=== PATIENT | female | born 1960 | race Caucasian/White ===

== ENCOUNTER 2019-05-05 18:37 | Inpatient (IN) ==
[2019-05-05] MEDS ORDERED: *HR* Dextrose 50 % in Water (Syg) 50 ML SYRINGE IVP PRN (18:43)
[2019-05-05] MEDS ORDERED: Ondansetron 4 MG/2 ML VIAL IVP ONE (18:48)
[2019-05-05] MEDS: 0.9 % Sodium Chloride 1,000 ML IVC SCH ×2 (19:17→20:41)
[2019-05-05 19:31] LABS: Basophils # 0.1 K/mcL (0.0-0.2); Basophils % 0.7 %; Eosinophils % 0.2 %; Hematocrit 40.5 % (35.3-44.9); Hemoglobin 12.5 g/dL (11.5-15.4); Immature Granulocytes % 3.2 % (0-4); Lymphocytes # 1.2 K/mcL (0.6-4.6); Lymphocytes % 6.2 %; Mean Corpuscular HGB Conc 30.9 g/dL (31.6-35.5); Mean Corpuscular Hemoglobin 25.6 pg (28.0-33.3); Mean Platelet Volume 9.3 fL (9.4-12.4); Monocytes # 1.2 K/mcL (0.0-1.3); Monocytes % 5.9 %; Neutrophils # 16.3 K/mcL (1.6-8.9); Platelet Count 531 K/mcL (140-400); Red Blood Count 4.88 M/mcL (3.82-4.97); Segmented Neutrophils % 83.8 %; White Blood Count 19.5 K/mcL (4.3-11.1)
[2019-05-05 19:39] LABS: VBG HCO3 8 mEq/L (21-27); VBG PCO2 31 mmHg (41-51); VBG PH 7.01 pH Units (7.32-7.42); VBG PO2 75 mmHg (25-50)
[2019-05-05] MEDS ORDERED: 0.9 % Sodium Chloride 1,000 ML IVC ONE ×2 (19:42→20:09)
[2019-05-05 19:48] LABS: Troponin I < 0.03 ng/mL (< 0.04)
[2019-05-05 19:51] LABS: Bilirubin,Urine Moderate (Negative); Blood,Urine Small (Negative); Clarity,Urine Cloudy (Clear); Color,Urine Yellow (Yellow); Glucose,Urine (UA) >=1000 mg/dL (Normal); Ketones,Urine >=160 mg/dL (Negative); Leukocyte Esterase,Urine Small (Negative); Nitrite,Urine Negative (Negative); PH,Urine 5.5 pH Units (5.0-8.0); Protein,Urine 100 mg/dL (Neg-Trace); Specific Gravity,Urine 1.029 (1.010-1.025); Urobilinogen,Urine Normal (Normal)
[2019-05-05 19:52] LABS: Bacteria,Urine Few per hpf (None-Few); Hyaline Casts,Urine None Seen per lpf (None-Few); Squamous Epithelial Cell,Urine Many per lpf (None-Few); WBC,Urine 50-100 per hpf (0-3)
[2019-05-05 20:00] LABS: BUN/Creatinine Ratio 19 (6-26); Blood Urea Nitrogen 25 mg/dL (6-20); Calcium 9.6 mg/dL (8.6-10.3); Carbon Dioxide 8 mEq/L (23-29); Chloride 98 mEq/L (98-107); Glucose 577 mg/dL (70-105); Osmolality,Calculated 301 (280-300); Potassium 5.4 mEq/L (3.5-5.1); Sodium 130 mEq/L (136-145); eGFR For African Americans 50 (> 60); eGFR For Non-African Americans 41 (> 60)
[2019-05-05 20:07] LABS: Yeast,Urine Few per hpf (None Seen)
[2019-05-05] MEDS ORDERED: cefTRIAXone 1,000 MG in 0.9 % Sodium Chloride Mini Bag 100 ML IVPB ONE (20:10)
[2019-05-05] MEDS: Insulin Human Regular 100 UNIT in 0.9 % Sodium Chloride 100 ML IVC SCH (20:15)
[2019-05-05] MEDS ORDERED: Insulin Regular, Human 100 UNIT/ML IV PRN ×2 (20:26)
[2019-05-05] MEDS ORDERED: D5% in 0.45% NACL 1,000 ML IVC PRN (20:26)
[2019-05-05] MEDS ORDERED: *HR* Promethazine 25 MG/ML VIAL IVP PRN (20:56)
[2019-05-05] MEDS ORDERED: Famotidine 20 MG/2 ML VIAL IVP ONE (20:57)
[2019-05-05] MEDS ORDERED: Naloxone 0.4 MG/ML INJ IVP PRN (22:18)
[2019-05-05 23:17] LABS: Estimated Average Glucose 235 mg/dl
[2019-05-05] MEDS: Artificial Tears SOLN 15 ML BOTTLE RIGHT EYE SCH (23:20)
[2019-05-05] MEDS: *HR* Heparin 5,000 UNIT/ML VIAL SQ SCH (23:21)
[2019-05-05 23:26] LABS: VBG HCO3 10 mEq/L (21-27); VBG PCO2 32 mmHg (41-51); VBG PH 7.08 pH Units (7.32-7.42); VBG PO2 54 mmHg (25-50)
[2019-05-05 23:37] LABS: Chol/HDL Ratio 6.1 (0-4.9)
[2019-05-05 23:39] LABS: Phosphorous 3.1 mg/dL (2.7-4.5); Potassium 4.8 mEq/L (3.5-5.1)
[2019-05-06] MEDS: D5% in 0.45% NACL w KCl 20 MEQ/1,000 ML MLS IVC PRN ×3 (00:27→08:50)
[2019-05-06] MEDS: 0.45 % Sodium Chloride w/KCl 20 MEQ/1,000 ML MLS IVC SCH ×5 (00:30→10:27)
[2019-05-06 02:41] LABS: VBG HCO3 13 mEq/L (21-27); VBG PCO2 42 mmHg (41-51); VBG PO2 86 mmHg (25-50)
[2019-05-06] MEDS ORDERED: Acetaminophen 325 MG TABLET PO PRN ×2 (03:02→14:12)
[2019-05-06 03:04] LABS: BUN/Creatinine Ratio 23 (6-26); Blood Urea Nitrogen 23 mg/dL (6-20); Calcium 8.7 mg/dL (8.6-10.3); Carbon Dioxide 12 mEq/L (23-29); Chloride 110 mEq/L (98-107); Glucose 269 mg/dL (70-105); Osmolality,Calculated 293 (280-300); Potassium 4.3 mEq/L (3.5-5.1); Sodium 135 mEq/L (136-145); eGFR For African Americans > 60 (> 60); eGFR For Non-African Americans 56 (> 60)
[2019-05-06] MEDS: Insulin Human Regular 100 UNIT in 0.9 % Sodium Chloride 100 ML IVC SCH ×2 (03:44→11:45)
[2019-05-06] MEDS ORDERED: Pantoprazole 40 MG VIAL IVP SCH (06:00)
[2019-05-06 06:08] LABS: Basophils # 0.1 K/mcL (0.0-0.2); Basophils % 0.5 %; Eosinophils # 0.1 K/mcL (0.0-0.6); Eosinophils % 0.4 %; Hematocrit 32.3 % (35.3-44.9); Hemoglobin 10.7 g/dL (11.5-15.4); Immature Granulocytes % 1.9 % (0-4); Lymphocytes # 1.1 K/mcL (0.6-4.6); Lymphocytes % 6.7 %; Mean Corpuscular HGB Conc 33.1 g/dL (31.6-35.5); Mean Corpuscular Hemoglobin 25.4 pg (28.0-33.3); Mean Platelet Volume 8.6 fL (9.4-12.4); Monocytes # 1.4 K/mcL (0.0-1.3); Monocytes % 8.9 %; Neutrophils # 13.2 K/mcL (1.6-8.9); Platelet Count 403 K/mcL (140-400); Red Blood Count 4.21 M/mcL (3.82-4.97); Segmented Neutrophils % 81.6 %; White Blood Count 16.2 K/mcL (4.3-11.1)
[2019-05-06 06:09] LABS: Mean Corpuscular Volume 76.7 fL (83.0-100.0)
[2019-05-06 06:09] LABS: VBG HCO3 14 mEq/L (21-27); VBG PCO2 32 mmHg (41-51); VBG PH 7.26 pH Units (7.32-7.42); VBG PO2 147 mmHg (25-50)
[2019-05-06 06:26] LABS: BUN/Creatinine Ratio 22 (6-26); Blood Urea Nitrogen 21 mg/dL (6-20); Calcium 8.8 mg/dL (8.6-10.3); Carbon Dioxide 15 mEq/L (23-29); Chloride 112 mEq/L (98-107); Glucose 112 mg/dL (70-105); Magnesium 1.9 mg/dL (1.6-2.6); Osmolality,Calculated 288 (280-300); Phosphorous 1.2 mg/dL (2.7-4.5); Sodium 137 mEq/L (136-145); eGFR For African Americans > 60 (> 60); eGFR For Non-African Americans 60 (> 60)
[2019-05-06] MEDS ORDERED: Potassium Phosphate 44 MEQ in 0.9 % Sodium Chloride 250 ML IVPB ONE (06:32)
[2019-05-06] MEDS: *HR* Heparin 5,000 UNIT/ML VIAL SQ SCH ×2 (08:50→16:06)
[2019-05-06] MEDS ORDERED: Gabapentin 300 MG CAPSULE PO SCH (09:00)
[2019-05-06] MEDS ORDERED: Phenylephrine Nasal 0.25% 15 ML BOTTLE NS SCH (09:00)
[2019-05-06] MEDS ORDERED: Lisinopril 20 MG TABLET PO SCH (09:00)
[2019-05-06] MEDS: Artificial Tears SOLN 15 ML BOTTLE RIGHT EYE SCH (10:27)
[2019-05-06 10:46] LABS: BUN/Creatinine Ratio 20 (6-26); Blood Urea Nitrogen 19 mg/dL (6-20); Calcium 8.5 mg/dL (8.6-10.3); Carbon Dioxide 16 mEq/L (23-29); Chloride 111 mEq/L (98-107); Glucose 187 mg/dL (70-105); Magnesium 1.8 mg/dL (1.6-2.6); Osmolality,Calculated 287 (280-300); Phosphorous 2.2 mg/dL (2.7-4.5); Potassium 4.2 mEq/L (3.5-5.1); Sodium 135 mEq/L (136-145); eGFR For African Americans > 60 (> 60); eGFR For Non-African Americans > 60 (> 60)
[2019-05-06] MEDS ORDERED: Insulin DETEMIR 100 UNIT/ML X5UNITS SQ SCH (11:28)
[2019-05-06] MEDS ORDERED: Dextrose Gel 15 GM/37.5 ML TUBE PO PRN ×6 (11:29→14:12)
[2019-05-06] MEDS ORDERED: *HR* Dextrose 50 % in Water (Syg) 50 ML SYRINGE IVP PRN ×3 (11:29→14:12)
[2019-05-06] MEDS ORDERED: D5% in Water 1,000 ML IVC PRN ×3 (11:29→14:12)
[2019-05-06] MEDS ORDERED: Insulin LISPRO 300 UNITS/3 ML VIAL SQ SCH ×2 (11:30→16:30)
[2019-05-06] MEDS: Gabapentin 300 MG CAPSULE PO SCH ×2 (16:06→20:12)
[2019-05-06] MEDS: Insulin LISPRO 300 UNITS/3 ML VIAL SQ SCH ×2 (17:26→20:12)
[2019-05-06] MEDS: Phenylephrine Nasal 0.25% 15 ML BOTTLE NS SCH (20:16)
[2019-05-06] MEDS ORDERED: Insulin Human Regular 10 UNIT in 0.9 % Sodium Chloride 10 ML IV ONE (22:10)
[2019-05-07] MEDS: *HR* Heparin 5,000 UNIT/ML VIAL SQ SCH ×4 (01:48→23:52)
[2019-05-07] MEDS ORDERED: Insulin Human Regular 10 UNIT in 0.9 % Sodium Chloride 10 ML IV ONE (04:43)
[2019-05-07] MEDS: Insulin LISPRO 300 UNITS/3 ML VIAL SQ SCH ×5 (07:52→21:20)
[2019-05-07] MEDS: Phenylephrine Nasal 0.25% 15 ML BOTTLE NS SCH ×2 (07:56→21:20)
[2019-05-07] MEDS: Gabapentin 300 MG CAPSULE PO SCH ×3 (08:00→21:19)
[2019-05-07] MEDS: Lisinopril 20 MG TABLET PO SCH (08:01)
[2019-05-07 08:13] LABS: Hematocrit 32.3 % (35.3-44.9); Hemoglobin 10.9 g/dL (11.5-15.4); Mean Corpuscular HGB Conc 33.7 g/dL (31.6-35.5); Mean Corpuscular Hemoglobin 25.8 pg (28.0-33.3); Mean Corpuscular Volume 76.4 fL (83.0-100.0); Mean Platelet Volume 8.7 fL (9.4-12.4); Platelet Count 352 K/mcL (140-400); Red Blood Count 4.23 M/mcL (3.82-4.97); Red Cell Distribution Width 15.2 % (11.5-14.5); White Blood Count 10.1 K/mcL (4.3-11.1)
[2019-05-07 08:34] LABS: BUN/Creatinine Ratio 16 (6-26); Blood Urea Nitrogen 15 mg/dL (6-20); Calcium 8.9 mg/dL (8.6-10.3); Carbon Dioxide 17 mEq/L (23-29); Chloride 105 mEq/L (98-107); Glucose 300 mg/dL (70-105); Osmolality,Calculated 284 (280-300); Sodium 131 mEq/L (136-145); eGFR For African Americans > 60 (> 60); eGFR For Non-African Americans > 60 (> 60)
[2019-05-07] MEDS ORDERED: Insulin DETEMIR 100 UNIT/ML X5UNITS SQ SCH ×2 (09:00→22:00)
[2019-05-07] MEDS ORDERED: Insulin LISPRO 300 UNITS/3 ML VIAL SQ ONE (12:31)
[2019-05-07] MEDS ORDERED: Insulin LISPRO 300 UNITS/3 ML VIAL SQ SCH (15:00)
[2019-05-08 05:59] LABS: BUN/Creatinine Ratio 17 (6-26); Blood Urea Nitrogen 16 mg/dL (6-20); Calcium 8.9 mg/dL (8.6-10.3); Carbon Dioxide 20 mEq/L (23-29); Chloride 103 mEq/L (98-107); Glucose 210 mg/dL (70-105); Osmolality,Calculated 285 (280-300); Potassium 3.5 mEq/L (3.5-5.1); Sodium 134 mEq/L (136-145); eGFR For African Americans > 60 (> 60); eGFR For Non-African Americans > 60 (> 60)
[2019-05-08 06:34] VITALS: BP 158/81
[2019-05-08] MEDS: Insulin LISPRO 300 UNITS/3 ML VIAL SQ SCH (07:46)
[2019-05-08] MEDS: *HR* Heparin 5,000 UNIT/ML VIAL SQ SCH (07:47)
[2019-05-08] MEDS ORDERED: Insulin LISPRO 300 UNITS/3 ML VIAL SQ SCH (08:00)
[2019-05-08] MEDS: Lisinopril 20 MG TABLET PO SCH (09:57)
[2019-05-08] MEDS: Gabapentin 300 MG CAPSULE PO SCH (09:58)
[2019-05-08] MEDS: Phenylephrine Nasal 0.25% 15 ML BOTTLE NS SCH (10:00)
[2019-05-08] MEDS ORDERED: FLU Vac QV 19-20 (6Month+)/PF 0.5 ML SYRINGE IM ONE (10:17)
== END 2019-05-08 11:19 | disposition home or self-care (01) | DRG 689 ==
LOC: EMEROOARM 18:37 → SUATTDRO 20:46 → ICNU 20:46 → 3ANU 05-06 14:56
PROVIDERS: ADMIT Internal Medicine; ATTEND Internal Medicine

== ENCOUNTER 2021-09-09 22:16 | Observation (INO) ==
[2021-09-09 22:56] LABS: Basophils % 0.5 %; Eosinophils # 0.5 K/mcL (0.0-0.6); Eosinophils % 5.7 %; Hematocrit 35.7 % (35.3-44.9); Hemoglobin 11.2 g/dL (11.5-15.4); Immature Granulocytes % 0.2 % (0-4); Lymphocytes # 1.2 K/mcL (0.6-4.6); Lymphocytes % 14.7 %; Mean Corpuscular HGB Conc 31.4 g/dL (31.6-35.5); Mean Corpuscular Hemoglobin 23.8 pg (28.0-33.3); Mean Platelet Volume 9.3 fL (9.4-12.4); Monocytes # 0.5 K/mcL (0.0-1.3); Monocytes % 5.8 %; Platelet Count 290 K/mcL (140-400); Red Cell Distribution Width 15.6 % (11.5-14.5); Segmented Neutrophils % 73.1 %; White Blood Count 8.2 K/mcL (4.3-11.1)
[2021-09-09 23:14] LABS: BUN/Creatinine Ratio 17 (6-26); Blood Urea Nitrogen 11 mg/dL (8-23); Calcium 8.8 mg/dL (8.6-10.3); Carbon Dioxide 21 mEq/L (23-29); Chloride 105 mEq/L (98-107); Glucose 168 mg/dL (70-105); Osmolality,Calculated 289 (280-300); Potassium 3.7 mEq/L (3.5-5.1); Sodium 138 mEq/L (136-145); eGFR For African Americans > 60 (> 60); eGFR For Non-African Americans > 60 (> 60)
[2021-09-09 23:16] LABS: Troponin I < 0.03 ng/mL (< 0.04)
[2021-09-09] MEDS ORDERED: *HR* Labetalol 20 MG/4 ML SYRINGE IVP ONE (23:34)
[2021-09-09 23:44] LABS: Bilirubin,Urine Negative (Negative); Blood,Urine Negative (Negative); Clarity,Urine Clear (Clear); Color,Urine Yellow (Yellow); Glucose,Urine (UA) Normal (Normal); Hyaline Casts,Urine Few per lpf (None Seen); Ketones,Urine Negative (Negative); Leukocyte Esterase,Urine Trace (Negative); Mucus,Urine Few per lpf (None-Few); Nitrite,Urine Negative (Negative); Protein,Urine >=300 mg/dL (Neg-Trace); RBC,Urine 0-3 per hpf (0-3); Squamous Epithelial Cell,Urine Moderate per hpf (None-Few); Urobilinogen,Urine Normal (Normal)
[2021-09-10] MEDS ORDERED: Prochlorperazine 10 MG/2 ML VIAL IVP ONE (00:33)
[2021-09-10 01:39] LABS: Influenza A PCR Negative (Negative); Influenza B PCR Negative (Negative); Resp. Syncytial Virus PCR Negative (Negative); SARS-CoV-2 by PCR (In House) Negative (Negative)
[2021-09-10] MEDS ORDERED: Acetaminophen 325 MG TABLET PO PRN (02:55)
[2021-09-10] MEDS ORDERED: *HR* Promethazine 25 MG/ML VIAL IM PRN (02:55)
[2021-09-10] MEDS ORDERED: Ondansetron 4 MG/2 ML VIAL IVP PRN (02:55)
[2021-09-10] MEDS ORDERED: Melatonin 3 MG TABLET PO PRN (02:55)
[2021-09-10] MEDS ORDERED: Naloxone 0.4 MG/ML INJ IVP PRN (02:55)
[2021-09-10] MEDS ORDERED: *HR* Dextrose 50 % in Water (Syg) 50 ML SYRINGE IVP PRN (02:59)
[2021-09-10] MEDS ORDERED: D5% in Water 1,000 ML IVC PRN (02:59)
[2021-09-10] MEDS ORDERED: Dextrose 4 GM Chewable Tablets PO PRN ×2 (02:59)
[2021-09-10 04:00] LABS: Basophils # 0.1 K/mcL (0.0-0.2); Basophils % 0.6 %; Eosinophils # 0.4 K/mcL (0.0-0.6); Eosinophils % 4.5 %; Hematocrit 31.7 % (35.3-44.9); Hemoglobin 10.2 g/dL (11.5-15.4); Immature Granulocytes % 0.2 % (0-4); Lymphocytes # 1.4 K/mcL (0.6-4.6); Lymphocytes % 17.4 %; Mean Corpuscular HGB Conc 32.2 g/dL (31.6-35.5); Mean Corpuscular Hemoglobin 24.2 pg (28.0-33.3); Mean Corpuscular Volume 75.3 fL (83.0-100.0); Mean Platelet Volume 9.5 fL (9.4-12.4); Monocytes # 0.5 K/mcL (0.0-1.3); Monocytes % 6.3 %; Neutrophils # 5.8 K/mcL (1.6-8.9); Platelet Count 272 K/mcL (140-400); Red Blood Count 4.21 M/mcL (3.82-4.97); Red Cell Distribution Width 15.6 % (11.5-14.5); White Blood Count 8.2 K/mcL (4.3-11.1)
[2021-09-10 04:14] LABS: Chol/HDL Ratio 3.1 (0-4.9)
[2021-09-10 04:17] LABS: Alanine Aminotransferase 6 Units/L (7-52); Albumin 3.9 g/dL (3.5-5.7); Albumin/Globulin Ratio 1.6 (1.1-2.2); Alkaline Phosphatase 65 Units/L (34-104); Aspartate Amino Transferase 9 Units/L (13-39); BUN/Creatinine Ratio 17 (6-26); Bilirubin,Total 0.5 mg/dL (0.3-1.0); Blood Urea Nitrogen 10 mg/dL (8-23); Calcium 8.7 mg/dL (8.6-10.3); Carbon Dioxide 25 mEq/L (23-29); Chloride 106 mEq/L (98-107); Globulin 2.5 g/dL (2.4-3.5); Glucose 151 mg/dL (70-105); Magnesium 1.5 mg/dL (1.6-2.6); Osmolality,Calculated 292 (280-300); Potassium 3.4 mEq/L (3.5-5.1); Sodium 140 mEq/L (136-145); Total Protein 6.4 g/dL (6.4-8.9); eGFR For African Americans > 60 (> 60); eGFR For Non-African Americans > 60 (> 60)
[2021-09-10] MEDS: *HR* Enoxaparin 40 MG/0.4 ML SYRINGE SQ SCH (05:43)
[2021-09-10] MEDS: Aspirin Enteric Coated 81 MG Tablet PO SCH (08:38)
[2021-09-10] MEDS: amLODIPine 5 MG TABLET PO SCH (08:38)
[2021-09-10] MEDS: lisinopriL 20 MG TABLET PO SCH (08:38)
[2021-09-10] MEDS: Insulin LISPRO 300 UNITS/3 ML VIAL SUBQ SCH ×3 (08:43→18:22)
[2021-09-10] MEDS ORDERED: Acetaminophen/Aspirin/Caffeine TABLET PO PRN (13:40)
[2021-09-10] MEDS ORDERED: Insulin DETEMIR 100 UNIT/ML X5UNITS SUBQ SCH ×2 (21:00)
[2021-09-10] MEDS ORDERED: traZODone 50 MG TABLET PO SCH (21:00)
[2021-09-10] MEDS ORDERED: Insulin LISPRO 300 UNITS/3 ML VIAL SUBQ SCH (21:00)
[2021-09-11] MEDS: *HR* Enoxaparin 40 MG/0.4 ML SYRINGE SQ SCH (06:23)
[2021-09-11] MEDS: Aspirin Enteric Coated 81 MG Tablet PO SCH (08:51)
[2021-09-11] MEDS: lisinopriL 20 MG TABLET PO SCH (08:51)
[2021-09-11] MEDS: amLODIPine 5 MG TABLET PO SCH (08:51)
[2021-09-11] MEDS: Insulin LISPRO 300 UNITS/3 ML VIAL SUBQ SCH (08:52)
[2021-09-11 10:35] VITALS: BP 156/79; PULSE 78; TEMP 97.8; O2SAT 95
== END 2021-09-11 12:38 | disposition home or self-care (01) ==
LOC: 3ANU 22:16 → EMEROOARM 22:16 → 3ANU 09-10 02:15
PROVIDERS: ADMIT Internal Medicine; ATTEND Internal Medicine

== ENCOUNTER 2022-01-10 20:43 | Inpatient (IN) ==
[2022-01-10] MEDS ORDERED: 0.9 % Sodium Chloride 1,000 ML IV ONE ×3 (20:52→23:54)
[2022-01-10 21:13] LABS: Basophils # 0.1 K/mcL (0.0-0.2); Basophils % 0.2 %; Hematocrit 49.1 % (35.3-44.9); Hemoglobin 15.1 g/dL (11.5-15.4); Immature Granulocytes % 0.8 % (0-4); Lymphocytes # 0.8 K/mcL (0.6-4.6); Lymphocytes % 3.9 %; Mean Corpuscular HGB Conc 30.8 g/dL (31.6-35.5); Mean Corpuscular Hemoglobin 25.6 pg (28.0-33.3); Mean Corpuscular Volume 83.2 fL (83.0-100.0); Mean Platelet Volume 10.2 fL (9.4-12.4); Monocytes # 1.2 K/mcL (0.0-1.3); Monocytes % 5.5 %; Neutrophils # 19.3 K/mcL (1.6-8.9); Platelet Count 864 K/mcL (140-400); Red Cell Distribution Width 16.6 % (11.5-14.5); Segmented Neutrophils % 89.6 %; White Blood Count 21.6 K/mcL (4.3-11.1)
[2022-01-10 21:21] LABS: VBG HCO3 6 mEq/L (21-27); VBG PCO2 23 mmHg (41-51); VBG PH 7.02 pH Units (7.32-7.42); VBG PO2 106 mmHg (25-50)
[2022-01-10 21:50] LABS: Bacteria,Urine Few per hpf (None-Few); Bilirubin,Urine Negative (Negative); Blood,Urine Trace (Negative); Clarity,Urine Clear (Clear); Color,Urine Light-Yellow (Yellow); Glucose,Urine (UA) >=1000 mg/dL (Normal); Hyaline Casts,Urine Few per lpf (None Seen); Ketones,Urine >150 mg/dL (Negative); Leukocyte Esterase,Urine Small (Negative); Mucus,Urine Few per lpf (None-Few); Nitrite,Urine Negative (Negative); PH,Urine 5.5 pH Units (5.0-8.0); Protein,Urine 70 mg/dL (Neg-Trace); RBC,Urine 0-3 per hpf (0-3); Specific Gravity,Urine 1.024 (1.010-1.025); Squamous Epithelial Cell,Urine Few per hpf (None-Few); Urobilinogen,Urine Normal (Normal); WBC,Urine 15-30 per hpf (0-3)
[2022-01-10 22:02] LABS: Albumin/Globulin Ratio 1.6 (1.1-2.2); Bilirubin,Total 0.5 mg/dL (0.3-1.0); Calcium 10.3 mg/dL (8.6-10.3); Globulin 3.1 g/dL (2.4-3.5); Potassium 5.4 mEq/L (3.5-5.1); Total Protein 8.1 g/dL (6.4-8.9)
[2022-01-10 22:52] LABS: Influenza A PCR Negative (Negative); Influenza B PCR Negative (Negative); Resp. Syncytial Virus PCR Negative (Negative)
[2022-01-10] MEDS ORDERED: Insulin Regular, Human 100 UNIT/ML IV ONE (22:58)
[2022-01-10 23:00] LABS: SARS-CoV-2 by PCR (In House) Positive (Negative)
[2022-01-10 23:01] LABS: Magnesium 2.2 mg/dL (1.6-2.6); Thyroid Stimulating Hormone 0.539 mcIU/mL (0.340-5.600); Troponin I < 0.03 ng/mL (< 0.04)
[2022-01-10] MEDS ORDERED: cefTRIAXone 1,000 MG in 0.9 % Sodium Chloride Mini Bag 100 ML IVPB ONE (23:05)
[2022-01-10] MEDS ORDERED: 0.9 % Sodium Chloride w KCl 20 MEQ/1,000 ML MLS IVC PRN (23:45)
[2022-01-10] MEDS ORDERED: Insulin Regular, Human 100 UNIT/ML IV PRN (23:49)
[2022-01-10] MEDS ORDERED: D5% in 0.45% NACL 1,000 ML IVC PRN (23:49)
[2022-01-10] MEDS ORDERED: *HR* Dextrose 50 % in Water (Syg) 50 ML SYRINGE IVP PRN (23:49)
[2022-01-11 03:30] LABS: Basophils % 0.2 %; Hematocrit 40.9 % (35.3-44.9); Lymphocytes # 0.9 K/mcL (0.6-4.6); Lymphocytes % 3.8 %; Mean Corpuscular HGB Conc 31.1 g/dL (31.6-35.5); Mean Corpuscular Hemoglobin 25.3 pg (28.0-33.3); Mean Corpuscular Volume 81.5 fL (83.0-100.0); Mean Platelet Volume 9.9 fL (9.4-12.4); Monocytes # 2.2 K/mcL (0.0-1.3); Monocytes % 9.7 %; Neutrophils # 19.2 K/mcL (1.6-8.9); Platelet Count 657 K/mcL (140-400); Red Blood Count 5.02 M/mcL (3.82-4.97); Red Cell Distribution Width 16.3 % (11.5-14.5); Segmented Neutrophils % 85.3 %; White Blood Count 22.5 K/mcL (4.3-11.1)
[2022-01-11 03:31] LABS: VBG HCO3 4 mEq/L (21-27); VBG PCO2 16 mmHg (41-51); VBG PH 7.04 pH Units (7.32-7.42); VBG PO2 75 mmHg (25-50)
[2022-01-11 03:33] LABS: Hemoglobin 12.7 g/dL (11.5-15.4)
[2022-01-11] MEDS: 0.9 % Sodium Chloride 1,000 ML IVC SCH ×11 (03:59→20:26)
[2022-01-11 04:04] LABS: Calcium 7.7 mg/dL (8.6-10.3); Potassium 3.7 mEq/L (3.5-5.1)
[2022-01-11 06:13] LABS: VBG HCO3 5 mEq/L (21-27); VBG PCO2 16 mmHg (41-51); VBG PH 7.11 pH Units (7.32-7.42); VBG PO2 63 mmHg (25-50)
[2022-01-11] MEDS: *HR* Heparin 5,000 UNIT/ML VIAL SQ SCH ×3 (06:19→20:25)
[2022-01-11] MEDS: Ondansetron 4 MG/2 ML VIAL IVP PRN ×3 (06:19→22:48)
[2022-01-11 06:24] LABS: Calcium 7.4 mg/dL (8.6-10.3); Potassium 5.8 mEq/L (3.5-5.1)
[2022-01-11 09:04] LABS: VBG HCO3 8 mEq/L (21-27); VBG PCO2 25 mmHg (41-51); VBG PH 7.14 pH Units (7.32-7.42); VBG PO2 63 mmHg (25-50)
[2022-01-11 09:13] LABS: Calcium 9.3 mg/dL (8.6-10.3)
[2022-01-11] MEDS: D5% in 0.45% NACL w KCl 20 MEQ/1,000 ML MLS IVC PRN ×3 (10:28→20:25)
[2022-01-11 10:29] LABS: VBG HCO3 12 mEq/L (21-27); VBG PCO2 31 mmHg (41-51); VBG PO2 35 mmHg (25-50)
[2022-01-11 10:42] LABS: Calcium 9.5 mg/dL (8.6-10.3); Potassium 3.1 mEq/L (3.5-5.1)
[2022-01-11 11:38] LABS: Estimated Average Glucose 240 mg/dl
[2022-01-11] MEDS: Prochlorperazine 10 MG/2 ML VIAL IVP PRN ×2 (11:54→23:41)
[2022-01-11 14:45] LABS: Calcium 9.5 mg/dL (8.6-10.3); Potassium 2.8 mEq/L (3.5-5.1)
[2022-01-11 16:27] LABS: VBG HCO3 15 mEq/L (21-27); VBG PCO2 31 mmHg (41-51); VBG PH 7.29 pH Units (7.32-7.42); VBG PO2 55 mmHg (25-50)
[2022-01-11 16:50] LABS: Calcium 9.8 mg/dL (8.6-10.3); Potassium 3.1 mEq/L (3.5-5.1)
[2022-01-11] MEDS ORDERED: *HR* Metoprolol 5 MG/5 ML VIAL IVP ONE (17:23)
[2022-01-11] MEDS: amLODIPine 5 MG TABLET PO SCH (18:07)
[2022-01-11] MEDS: cefTRIAXone 1,000 MG in 0.9 % Sodium Chloride 10 ML IVP SCH (20:25)
[2022-01-11 20:56] LABS: VBG HCO3 16 mEq/L (21-27); VBG PCO2 37 mmHg (41-51); VBG PH 7.23 pH Units (7.32-7.42); VBG PO2 49 mmHg (25-50)
[2022-01-11 21:17] LABS: Calcium 9.3 mg/dL (8.6-10.3); Potassium 4.2 mEq/L (3.5-5.1)
[2022-01-11] MEDS ORDERED: D5% in Water 1,000 ML IVC SCH (23:15)
[2022-01-12] MEDS ORDERED: Metoclopramide 10 MG/2 ML VIAL IVP ONE (01:32)
[2022-01-12 01:40] LABS: VBG HCO3 15 mEq/L (21-27); VBG PCO2 33 mmHg (41-51); VBG PH 7.28 pH Units (7.32-7.42); VBG PO2 45 mmHg (25-50)
[2022-01-12 02:01] LABS: Calcium 9.5 mg/dL (8.6-10.3); Potassium 3.4 mEq/L (3.5-5.1)
[2022-01-12] MEDS ORDERED: *HR* LORazepam 2 MG/ML VIAL IVP ONE (03:05)
[2022-01-12] MEDS: *HR* Heparin 5,000 UNIT/ML VIAL SQ SCH ×3 (05:02→22:01)
[2022-01-12 05:27] LABS: VBG HCO3 15 mEq/L (21-27); VBG PCO2 37 mmHg (41-51); VBG PH 7.22 pH Units (7.32-7.42); VBG PO2 54 mmHg (25-50)
[2022-01-12 05:32] LABS: Basophils % 0.1 %; Immature Granulocytes % 0.4 % (0-4); Lymphocytes # 0.5 K/mcL (0.6-4.6); Lymphocytes % 3.4 %; Mean Corpuscular Hemoglobin 25.7 pg (28.0-33.3); Mean Corpuscular Volume 75.6 fL (83.0-100.0); Mean Platelet Volume 9.7 fL (9.4-12.4); Monocytes % 7.5 %; Neutrophils # 12.4 K/mcL (1.6-8.9); Platelet Count 306 K/mcL (140-400); Red Blood Count 3.97 M/mcL (3.82-4.97); Segmented Neutrophils % 88.6 %; White Blood Count 13.9 K/mcL (4.3-11.1)
[2022-01-12 05:35] LABS: Hemoglobin 10.2 g/dL (11.5-15.4)
[2022-01-12 05:50] LABS: Albumin 3.5 g/dL (3.5-5.7); Albumin/Globulin Ratio 1.6 (1.1-2.2); Bilirubin,Total 0.5 mg/dL (0.3-1.0); Calcium 8.9 mg/dL (8.6-10.3); Globulin 2.2 g/dL (2.4-3.5); Magnesium 1.6 mg/dL (1.6-2.6); Potassium 4.1 mEq/L (3.5-5.1); Total Protein 5.7 g/dL (6.4-8.9)
[2022-01-12] MEDS ORDERED: Potassium Phosphate 44 MEQ in 0.9 % Sodium Chloride 250 ML IVPB ONE ×2 (05:52→21:44)
[2022-01-12] MEDS: D5% in Water 1,000 ML IVC SCH ×4 (06:26→22:00)
[2022-01-12] MEDS: Ondansetron 4 MG/2 ML VIAL IVP PRN (06:27)
[2022-01-12] MEDS: amLODIPine 5 MG TABLET PO SCH (07:48)
[2022-01-12] MEDS: Aspirin 325 MG TABLET PO SCH ×2 (07:48→16:50)
[2022-01-12 09:25] LABS: VBG HCO3 16 mEq/L (21-27); VBG PCO2 34 mmHg (41-51); VBG PH 7.28 pH Units (7.32-7.42); VBG PO2 102 mmHg (25-50)
[2022-01-12 09:40] LABS: BUN/Creatinine Ratio 17 (6-26); Blood Urea Nitrogen 19 mg/dL (8-23); Calcium 9.1 mg/dL (8.6-10.3); Carbon Dioxide 16 mEq/L (23-29); Chloride 116 mEq/L (98-107); Glucose 162 mg/dL (70-105); Osmolality,Calculated 296 (280-300); Potassium 3.7 mEq/L (3.5-5.1); Sodium 140 mEq/L (136-145); eGFR For African Americans > 60 (> 60); eGFR For Non-African Americans 50 (> 60)
[2022-01-12] MEDS: 0.9 % Sodium Chloride 1,000 ML IVC SCH ×8 (10:10→16:02)
[2022-01-12 13:53] LABS: VBG HCO3 17 mEq/L (21-27); VBG PCO2 31 mmHg (41-51); VBG PH 7.33 pH Units (7.32-7.42); VBG PO2 144 mmHg (25-50)
[2022-01-12 14:10] LABS: BUN/Creatinine Ratio 17 (6-26); Blood Urea Nitrogen 17 mg/dL (8-23); Calcium 9.3 mg/dL (8.6-10.3); Carbon Dioxide 16 mEq/L (23-29); Chloride 113 mEq/L (98-107); Glucose 129 mg/dL (70-105); Osmolality,Calculated 289 (280-300); Potassium 3.5 mEq/L (3.5-5.1); Sodium 138 mEq/L (136-145); eGFR For African Americans > 60 (> 60); eGFR For Non-African Americans 55 (> 60)
[2022-01-12 17:25] LABS: VBG HCO3 17 mEq/L (21-27); VBG PCO2 30 mmHg (41-51); VBG PH 7.35 pH Units (7.32-7.42); VBG PO2 117 mmHg (25-50)
[2022-01-12 17:46] LABS: BUN/Creatinine Ratio 14 (6-26); Blood Urea Nitrogen 14 mg/dL (8-23); Calcium 8.8 mg/dL (8.6-10.3); Carbon Dioxide 17 mEq/L (23-29); Chloride 113 mEq/L (98-107); Glucose 225 mg/dL (70-105); Osmolality,Calculated 294 (280-300); Potassium 3.4 mEq/L (3.5-5.1); Sodium 138 mEq/L (136-145); eGFR For African Americans > 60 (> 60); eGFR For Non-African Americans 58 (> 60)
[2022-01-12] MEDS: cefTRIAXone 1,000 MG in 0.9 % Sodium Chloride 10 ML IVP SCH (20:10)
[2022-01-12 20:41] LABS: VBG HCO3 18 mEq/L (21-27); VBG PCO2 30 mmHg (41-51); VBG PH 7.39 pH Units (7.32-7.42); VBG PO2 106 mmHg (25-50)
[2022-01-12 21:30] LABS: BUN/Creatinine Ratio 13 (6-26); Blood Urea Nitrogen 12 mg/dL (8-23); Carbon Dioxide 18 mEq/L (23-29); Chloride 115 mEq/L (98-107); Glucose 107 mg/dL (70-105); Osmolality,Calculated 292 (280-300); Potassium 2.9 mEq/L (3.5-5.1); Sodium 141 mEq/L (136-145); eGFR For African Americans > 60 (> 60); eGFR For Non-African Americans > 60 (> 60)
[2022-01-12 21:59] LABS: Phosphorous 1.1 mg/dL (2.7-4.5)
[2022-01-12] MEDS ORDERED: Insulin DETEMIR 100 UNIT/ML X5UNITS SUBQ ONE (22:29)
[2022-01-13] MEDS: *HR* Heparin 5,000 UNIT/ML VIAL SQ SCH ×3 (05:17→21:04)
[2022-01-13 06:23] LABS: Basophils % 0.1 %; Eosinophils % 0.3 %; Hematocrit 27.5 % (35.3-44.9); Hemoglobin 9.6 g/dL (11.5-15.4); Immature Granulocytes % 0.4 % (0-4); Lymphocytes % 13.3 %; Mean Corpuscular HGB Conc 34.9 g/dL (31.6-35.5); Mean Corpuscular Hemoglobin 26.2 pg (28.0-33.3); Mean Corpuscular Volume 74.9 fL (83.0-100.0); Mean Platelet Volume 9.8 fL (9.4-12.4); Monocytes # 0.6 K/mcL (0.0-1.3); Monocytes % 7.9 %; Neutrophils # 5.6 K/mcL (1.6-8.9); Platelet Count 210 K/mcL (140-400); Red Blood Count 3.67 M/mcL (3.82-4.97); Red Cell Distribution Width 16.9 % (11.5-14.5); White Blood Count 7.2 K/mcL (4.3-11.1)
[2022-01-13 07:08] LABS: BUN/Creatinine Ratio 13 (6-26); Blood Urea Nitrogen 12 mg/dL (8-23); Calcium 8.7 mg/dL (8.6-10.3); Carbon Dioxide 18 mEq/L (23-29); Chloride 109 mEq/L (98-107); Glucose 345 mg/dL (70-105); Magnesium 1.4 mg/dL (1.6-2.6); Osmolality,Calculated 299 (280-300); Potassium 3.9 mEq/L (3.5-5.1); Sodium 138 mEq/L (136-145); eGFR For African Americans > 60 (> 60); eGFR For Non-African Americans > 60 (> 60)
[2022-01-13] MEDS ORDERED: Insulin LISPRO 300 UNITS/3 ML VIAL SUBQ SCH (07:30)
[2022-01-13] MEDS: amLODIPine 5 MG TABLET PO SCH (08:13)
[2022-01-13] MEDS: Aspirin 325 MG TABLET PO SCH ×2 (08:13→17:15)
[2022-01-13 10:46] LABS: ABG PCO2 < 13 mmHg (35-45); ABG PH 7.12 pH Units (7.32-7.45); ABG PO2 141 mmHg (85-104)
[2022-01-13] MEDS: Insulin LISPRO 300 UNITS/3 ML VIAL SUBQ SCH ×3 (12:09→21:05)
[2022-01-13] MEDS: Insulin DETEMIR 100 UNIT/ML X5UNITS SUBQ SCH ×2 (12:09→21:04)
[2022-01-13] MEDS ORDERED: Insulin DETEMIR 100 UNIT/ML X5UNITS SUBQ SCH (21:00)
[2022-01-13] MEDS: cefTRIAXone 1,000 MG in 0.9 % Sodium Chloride 10 ML IVP SCH (21:04)
[2022-01-14 05:14] LABS: % Iron Saturation 23 % (15-50); BUN/Creatinine Ratio 13 (6-26); Blood Urea Nitrogen 11 mg/dL (8-23); Calcium 8.6 mg/dL (8.6-10.3); Carbon Dioxide 24 mEq/L (23-29); Chloride 111 mEq/L (98-107); Glucose 199 mg/dL (70-105); Iron 54 mcg/dL (50-170); Magnesium 1.5 mg/dL (1.6-2.6); Osmolality,Calculated 299 (280-300); Phosphorous 3.4 mg/dL (2.7-4.5); Potassium 3.1 mEq/L (3.5-5.1); Sodium 142 mEq/L (136-145); Transferrin 170 mg/dL (203-362); eGFR For African Americans > 60 (> 60); eGFR For Non-African Americans > 60 (> 60)
[2022-01-14 05:16] LABS: Basophils % 0.4 %; Eosinophils # 0.1 K/mcL (0.0-0.6); Eosinophils % 1.5 %; Hematocrit 27.8 % (35.3-44.9); Hemoglobin 9.4 g/dL (11.5-15.4); Immature Granulocytes % 0.4 % (0-4); Lymphocytes # 1.2 K/mcL (0.6-4.6); Mean Corpuscular HGB Conc 33.8 g/dL (31.6-35.5); Mean Corpuscular Hemoglobin 25.4 pg (28.0-33.3); Mean Corpuscular Volume 75.1 fL (83.0-100.0); Mean Platelet Volume 10.5 fL (9.4-12.4); Monocytes # 0.5 K/mcL (0.0-1.3); Neutrophils # 3.4 K/mcL (1.6-8.9); Platelet Count 193 K/mcL (140-400); Red Cell Distribution Width 16.2 % (11.5-14.5); Segmented Neutrophils % 65.7 %; White Blood Count 5.2 K/mcL (4.3-11.1)
[2022-01-14 05:43] LABS: Folate 9.9 ng/mL (3.0-16.0)
[2022-01-14] MEDS: *HR* Heparin 5,000 UNIT/ML VIAL SQ SCH ×2 (06:53→14:36)
[2022-01-14 08:00] VITALS: BP 145/84
[2022-01-14] MEDS: Aspirin 325 MG TABLET PO SCH (08:44)
[2022-01-14] MEDS: amLODIPine 5 MG TABLET PO SCH (08:44)
[2022-01-14] MEDS: Insulin LISPRO 300 UNITS/3 ML VIAL SUBQ SCH ×2 (08:46→12:28)
[2022-01-14] MEDS: Insulin DETEMIR 100 UNIT/ML X5UNITS SUBQ SCH (08:48)
[2022-01-14 12:08] VITALS: O2SAT 98
[2022-01-14 14:14] VITALS: PULSE 89
[2022-01-15 08:44] VITALS: TEMP 97.5
== END 2022-01-14 16:01 | disposition home or self-care (01) | DRG 637 ==
LOC: EMEROOARM 20:43 → 2NNU 20:43 → SUATTDRO 01-11 10:55
PROVIDERS: ADMIT Internal Medicine; ATTEND Internal Medicine